=== PATIENT | female | born 1985 | race Caucasian/White ===

== ENCOUNTER 2018-04-14 19:14 | Emergency (ER) | payer SELFPAY ==
[~2018-04-14] VITALS: Ht 162.6 cm; Wt 108.9 kg
[2018-04-14 19:30] VITALS: Ht 162.6 cm; Wt 108.9 kg
[2018-04-14 20:36] LABS: BASOPHIL % 0.6 % (0-2); PLATELET COUNT 306 x10^3mcL (130-400); RED CELL DISTRIBUTION WIDTH 12.5 % (11.5-14.5)
[2018-04-14 20:38] LABS: UA SPECIFIC GRAVITY <=1.005 (1.005-1.035); microscopic required? YES; urine erythrocyte 3+ (NEGATIVE)
[2018-04-14 22:34] VITALS: BP 159/100
== END 2018-04-14 22:53 | disposition home or self-care (01) ==
LOC: ED 19:14
PROVIDERS: Emergency Medicine
DX: O03.9 Complete or unspecified spontaneous abortion without complication (principal); I10 Essential (primary) hypertension
CPT/HCPCS: 36415